=== PATIENT | female | born 1965 | race Caucasian/White ===

== ENCOUNTER 2017-02-16 20:31 | Emergency (ER) | payer OTHER ==
[~2017-02-16] VITALS: Ht 180.3 cm; Wt 62.1 kg
--- NOTE | ~2017-02-16 | CR151 ---
[facility] A Service of [facility] & [facility] RADIOLOGY TEXT RESULTS PATIENT: NUPUR ALEXANDER LOCATION: CFTX : 65 UNIT #: [id number] AGE: [address]: Andie Perkins APRN SEX: F ORDER DR: [id number] [facility] [address] [place], [place] [address] [id number] E MR#: [id number] Acc #: [id number] NAME: NUPUR ALEXANDER. : 1965 SEX: F STUDY DATE/TIME: 02/16/2017 23:26 UNIT: [facility] ROOM: STUDY DESCRIPTION: CR Hip Min 2 Views Rt Attending Physician: Andie Perkins A.P.R.N. Ordering Physician: Andie Perkins A.P.R.N. Primary Care Physician: Deion Richards M.D. MEDICAL IMAGING REPORT This report is preliminary unless electronic signature is present EXAM Right hip 02/16/2017 HISTORY 51-year-old female in the ED with right hip pain after a fall today. TECHNIQUE Two-view right hip series. FINDINGS No fracture, dislocation or other acute osseous abnormality is demonstrated. IMPRESSION Negative right hip series. Dictated by... Darrick Lee M.D. THIS IS AN ELECTRONICALLY VERIFIED REPORT Darrick Lee M.D. at 02/20/2017 11:06 PM ANNIE/pratik TD: 02/17/2017 13:19 JOB #: [id number] MEDICAL IMAGING REPORT Page 1 of 1 COPY
--- NOTE | ~2017-02-16 | CR141 ---
[facility] A Service of [facility] & [facility] RADIOLOGY TEXT RESULTS PATIENT: NUPUR ALEXANDER LOCATION: [place] : [birth year] UNIT #: [id number] AGE: [address]: Andie Perkins APRN SEX: F ORDER DR: [id number] [facility] [address] [place], [place] [address] [id number] E MR#: [id number] Acc #: [id number] NAME: NUPUR ALEXANDER. : 1965 SEX: F STUDY DATE/TIME: 02/16/2017 23:26 UNIT: [facility] ROOM: STUDY DESCRIPTION: CR Hand Min 3 Views Lt Attending Physician: Andie Perkins A.P.R.N. Ordering Physician: Andie Perkins A.P.R.N. Primary Care Physician: Deion Richards M.D. MEDICAL IMAGING REPORT This report is preliminary unless electronic signature is present EXAM Left hand, 02/16/2017. HISTORY 51-year-old female in the ED complaining of left hand pain after a fall today prior to arrival. She has a history of rheumatoid arthritis. FINDINGS There is an acute, nondisplaced oblique fracture through the mid and proximal shaft of the first metacarpal without definite extension to the proximal articular surface. There are also a nondisplaced oblique fractures through the proximal shafts of the fourth and fifth metacarpals with no evidence of intraarticular extension. No additional acute osseous abnormality is identified. 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 IMPRESSION 1. Acute fractures of the first, fourth and fifth metacarpals. 2. Advanced rheumatoid arthritis with chronic erosive/destructive changes throughout the carpal wrist. Dictated by... Darrick Lee M.D. THIS IS AN ELECTRONICALLY VERIFIED REPORT Darrick Lee M.D. at 02/20/2017 11:06 PM ANNIE/lexie TD: 02/17/2017 13:17 JOB #: [id number] [facility] A Service of [facility] & [facility] RADIOLOGY TEXT RESULTS PATIENT: NUPUR ALEXANDER LOCATION: [facility] #: [id number] : [birth year] UNIT #: [id number] AGE: [address]: Andie Perkins APRN SEX: F ORDER DR: MEDICAL IMAGING REPORT Page 1 of 1 COPY
--- NOTE | ~2017-02-16 | CR173 ---
[facility] A Service of [facility] & [facility] RADIOLOGY TEXT RESULTS PATIENT: NUPUR ALEXANDER LOCATION: [facility] : [birth year] UNIT #: [id number] AGE: [address]: Andie Perkins APRN SEX: F ORDER DR: [id number] [facility] [address] [place], [place] [address] [id number] E MR#: [id number] Acc #: [id number] NAME: NUPUR ALEXANDER. : 1965 SEX: F STUDY DATE/TIME: 02/16/2017 23:26 UNIT: [facility] ROOM: STUDY DESCRIPTION: CR Knee 3 Views Rt Attending Physician: Andie Perkins A.P.R.N. Ordering Physician: Andie Perknis A.P.R.N. Primary Care Physician: Deion Richards M.D. MEDICAL IMAGING REPORT This report is preliminary unless electronic signature is present EXAM Right knee 02/16/2017 HISTORY 51-year-old female in the ED with right knee pain after a fall earlier today. TECHNIQUE Three-view right knee series. FINDINGS No fracture, dislocation or other acute osseous abnormality is demonstrated. No visible joint effusion or radiopaque soft tissue foreign body. IMPRESSION Negative right knee series. Dictated by... Darrick Lee M.D. THIS IS AN ELECTRONICALLY VERIFIED REPORT Darrick Lee M.D. at 02/20/2017 11:06 PM ANNIE/pratik TD: 02/17/2017 13:18 JOB #: [id number] MEDICAL IMAGING REPORT Page 1 of 1 COPY
--- NOTE | ~2017-02-16 | CR94 ---
[facility] A Service of [facility] & [facility] RADIOLOGY TEXT RESULTS PATIENT: NUPUR ALEXANDER LOCATION: [facility] : 65 UNIT #: [id number] AGE: [address]: Andie Perkins APRN SEX: F ORDER DR: [id number] [facility] [address] [place], [place] [address] [id number] E MR#: [id number] Acc #: [id number] NAME: NUPUR ALEXANDER. : 1965 SEX: F STUDY DATE/TIME: 02/16/2017 23:26 UNIT: [facility] ROOM: STUDY DESCRIPTION: CR Elbow Min 3 Views Rt Attending Physician: Andie Perkins A.P.R.N. Ordering Physician: Andie Perkins A.P.R.N. Primary Care Physician: Deion Richards M.D. MEDICAL IMAGING REPORT This report is preliminary unless electronic signature is present EXAM Right elbow series 02/16/2017 HISTORY Elbow pain after injury. Fell tonight. TECHNIQUE Three-view right elbow series. FINDINGS The examination is negative. No fracture, dislocation, or other acute osseous abnormality. No visible radiopaque soft tissue foreign body. IMPRESSION Negative right elbow series. Dictated by... Darrick Lee M.D. THIS IS AN ELECTRONICALLY VERIFIED REPORT Darrick Lee M.D. at 02/20/2017 11:06 PM ANNIE/monica TD: 02/17/2017 14:00 JOB #: [id number] MEDICAL IMAGING REPORT Page 1 of 1 COPY
[~2017-02-16 20:31] MED LIST: BENADRYL25 M3 PO; COLACE PO; DESYREL150 M1 PO; MEDROL4 MG/DOSE- PO; MIRALAX17 GM PO; ORUDIS75 M1 PO; PANTOPRAZOLE SO40 MG PO; PEPCID AC20 M2 PO; PERCOCET 7.5-31 EACH PO; PREDNISONE PO; PROAIR HFA8.5 GM INH; PROZAC10 M1 PO; SENOKOT S1 TA1 PO; TAMIFLU75 M1 PO
== END 2017-02-17 02:00 | disposition home or self-care (01) ==
LOC: CED 20:31 → CFTX 20:31
DX: S62.245A Nondisplaced fracture of shaft of first metacarpal bone, left hand, initial encounter for closed fracture (principal); S62.355A Nondisplaced fracture of shaft of fourth metacarpal bone, left hand, initial encounter for closed fracture; S62.357A Nondisplaced fracture of shaft of fifth metacarpal bone, left hand, initial encounter for closed fracture; S80.01XA Contusion of right knee, initial encounter; S50.01XA Contusion of right elbow, initial encounter; Z23 Encounter for immunization; F32.9 Major depressive disorder, single episode, unspecified; Z86.19 Personal history of other infectious and parasitic diseases; M06.9 Rheumatoid arthritis, unspecified; W01.0XXA Fall on same level from slipping, tripping and stumbling without subsequent striking against object, initial encounter; Y92.524 Gas station as the place of occurrence of the external cause
CPT/HCPCS: 29125; 29530; 73080; 73130; 73502; 73562; 90471; 90715; 99283